=== PATIENT | male | born 1965 | race Caucasian/White ===

== ENCOUNTER 2017-03-06 10:57 | Inpatient (IN) | payer BC ==
[~2017-03-06] VITALS: Ht 172.7 cm; Wt 86.8 kg
[~2017-03-06 10:57] MED LIST: DAYPRO600 M1 PO; HYDR25T PO; HYDROCODONE BIT1 T11 PO; KLONOPIN2 M1 PO; LISINOPRIL20 MG PO; ROBAXIN750 MG PO; XANAX1 MG PO
[2017-03-06 11:00] VITALS: BP 162/90
[2017-03-06 11:25] LABS: BASO % 0.7 % (0.0-1.0); EOS # 0.3 10*3/uL (0.0-0.4); EOS % 5.3 % (1.0-4.0); HEMATOCRIT 44.3 % (42.0-52.0); HEMOGLOBIN 15.7 g/dl (14.0-18.0); LYMPH # 1.2 10*3/uL (1.3-4.4); LYMPH % 22.1 % (27.0-41.0); MEAN CELL VOLUME 86.2 fl (80.0-94.0); MEAN CORPUSCULAR HGB 30.5 pg (27.0-31.0); MEAN CORPUSCULAR HGB CONC 35.4 g/dl (33.0-37.0); MEAN PLATELET VOLUME 9.8 fl (9.6-12.3); MONO # 0.5 10*3/uL (0.1-1.0); MONO % 9.5 % (3.0-9.0); NEUT # 3.4 10*3/uL (2.3-7.9); PLATELET COUNT AUTOMATED 189 10*3/uL (130-400); RED BLOOD COUNT 5.14 10*6/uL (4.50-5.90); RED CELL DISTRI WIDTH 11.9 % (0-14.5); WHITE BLOOD COUNT 5.5 10*3/uL (4.8-10.8)
[2017-03-06 11:34] LABS: PROTHROMBIN TIME 10.5 SECONDS (9.0-12.4)
[2017-03-06 11:40] LABS: ALKALINE PHOSPHATASE 63 U/L (45-117); BILIRUBIN, TOTAL 0.5 mg/dl (0.2-1.0); BUN 14 mg/dl (7-24); C-REACTIVE PROTEIN 0.29 MG/DL (0-0.3); CARBON DIOXIDE 25 mmol/L (21-32); CHLORIDE 104 mmol/L (98-107); CKMB 0.7 ng/ml (0.5-3.6); CPK 94 U/L (39-308); EST GLOM FILT AFRICAN AMERICAN > 60 ml/min; GLUCOSE 103 mg/dL (65-99); MAGNESIUM 2.4 mg/dL (1.5-2.1); SGOT/AST 26 IU/L (3-35); SGPT/ALT 42 U/L (12-78); SODIUM 142 mmol/L (136-145); TOTAL PROTEIN 7.4 gm/dL (6.4-8.2)
[2017-03-06 11:42] LABS: TROPONIN I < 0.015 ng/ml (<0.045)
[2017-03-06 12:10] VITALS: BP 143/95
[2017-03-06] MEDS ORDERED: AMOXICILLIN500 M2 PO (12:59)
[2017-03-06 13:30] VITALS: BP 132/88
[2017-03-06 14:24] LABS: CPK 83 U/L (39-308)
[2017-03-06 14:29] LABS: CKMB < 0.5 ng/ml (0.5-3.6)
[2017-03-06 16:00] VITALS: BP 136/76
[2017-03-06 16:42] LABS: CKMB 0.9 ng/ml (0.5-3.6)
[2017-03-06 19:52] LABS: CPK 78 U/L (39-308)
[2017-03-06 20:00] VITALS: BP 133/87
[2017-03-06 20:00] LABS: CKMB < 0.5 ng/ml (0.5-3.6)
[2017-03-07] VITALS: BP 139/86
[2017-03-07 06:28] LABS: BASO % 0.5 % (0.0-1.0); BUN 13 mg/dl (7-24); CARBON DIOXIDE 28 mmol/L (21-32); CHLORIDE 107 mmol/L (98-107); CHOLESTEROL 150 mg/dL (<200); EOS # 0.3 10*3/uL (0.0-0.4); EOS % 5.9 % (1.0-4.0); EST GLOM FILT AFRICAN AMERICAN > 60 ml/min; GLUCOSE 93 mg/dL (65-99); HEMATOCRIT 38.9 % (42.0-52.0); LYMPH # 2.1 10*3/uL (1.3-4.4); LYMPH % 37.4 % (27.0-41.0); MAGNESIUM 2.1 mg/dL (1.5-2.1); MEAN CELL VOLUME 88.2 fl (80.0-94.0); MEAN CORPUSCULAR HGB 30.4 pg (27.0-31.0); MEAN CORPUSCULAR HGB CONC 34.4 g/dl (33.0-37.0); MONO # 0.5 10*3/uL (0.1-1.0); MONO % 8.4 % (3.0-9.0); NEUT # 2.7 10*3/uL (2.3-7.9); NEUT % 47.6 % (47.0-73.0); PHOSPHOROUS 3.5 mg/dL (2.5-4.9); PLATELET COUNT AUTOMATED 161 10*3/uL (130-400); POTASSIUM 4.5 mmol/L (3.5-5.1); RED BLOOD COUNT 4.41 10*6/uL (4.50-5.90); SODIUM 144 mmol/L (136-145); TRIGLYCERIDES 143 mg/dl (<150); VLDL CHOLESTEROL 29 mg/dL (6-40); WHITE BLOOD COUNT 5.6 10*3/uL (4.8-10.8)
[2017-03-07 06:30] LABS: HEMOGLOBIN 13.4 g/dl (14.0-18.0)
[2017-03-07 06:40] LABS: FREE T4 1.18 ng/dl (0.76-1.46); HDL CHOLESTEROL 34 mg/dl (40-60); LDL CHOLESTEROL 87 mg/dL (9-159)
[2017-03-07 07:15] LABS: HEMOGLOBIN A1c 5.8 % (4.8-5.6)
[2017-03-07 08:00] VITALS: BP 133/78
[2017-03-07 12:00] VITALS: BP 128/82
[2017-03-07 16:00] VITALS: BP 114/64
[2017-03-07 20:00] VITALS: BP 132/81
[2017-03-08] VITALS: BP 107/75
[2017-03-08 06:07] LABS: BASO % 0.5 % (0.0-1.0); EOS # 0.4 10*3/uL (0.0-0.4); EOS % 5.3 % (1.0-4.0); HEMATOCRIT 41.1 % (42.0-52.0); HEMOGLOBIN 14.2 g/dl (14.0-18.0); LYMPH # 2.1 10*3/uL (1.3-4.4); LYMPH % 32.1 % (27.0-41.0); MEAN CELL VOLUME 88.6 fl (80.0-94.0); MEAN CORPUSCULAR HGB 30.6 pg (27.0-31.0); MEAN CORPUSCULAR HGB CONC 34.5 g/dl (33.0-37.0); MEAN PLATELET VOLUME 9.5 fl (9.6-12.3); MONO # 0.5 10*3/uL (0.1-1.0); MONO % 8.2 % (3.0-9.0); NEUT # 3.6 10*3/uL (2.3-7.9); NEUT % 53.6 % (47.0-73.0); PLATELET COUNT AUTOMATED 165 10*3/uL (130-400); RED BLOOD COUNT 4.64 10*6/uL (4.50-5.90); RED CELL DISTRI WIDTH 12.2 % (0-14.5); WHITE BLOOD COUNT 6.6 10*3/uL (4.8-10.8)
[2017-03-08 08:00] VITALS: BP 118/86
[2017-03-08] MEDS ORDERED: D-1000 185 MG-11 TAB PO (10:00)
== END 2017-03-08 11:45 | disposition home or self-care (01) | DRG 312 ==
LOC: ED 10:57 → EDHOLD 12:01 → 4E 12:05
PROVIDERS: Emergency Medicine; Hospitalist; Student in an Organized Health Care Education/Training Program
DX: R55 Syncope and collapse (principal); E83.41 Hypermagnesemia; I10 Essential (primary) hypertension; R19.7 Diarrhea, unspecified; R00.1 Bradycardia, unspecified; D64.9 Anemia, unspecified; E55.9 Vitamin D deficiency, unspecified; F41.0 Panic disorder [episodic paroxysmal anxiety]; E78.5 Hyperlipidemia, unspecified; Z82.49 Family history of ischemic heart disease and other diseases of the circulatory system; Z82.3 Family history of stroke

== ENCOUNTER → 2017-04-27 | Outpatient (CLI) | payer BC ==
[~2017-04-27] MED LIST changes: +AMOXICILLIN500 M2 PO; +ASPIR LOW81 MG PO; +D-1000 185 MG-11 TAB PO
--- NOTE | ~2017-04-27 | ST ---
[place], [place] EXERCISE STRESS TEST REPORT NAME[id number] UNIT #: [id number] ROOM: DOCTOR: DEONTE ALONSO MD BIRTHDATE: [birth year] DOS: INDICATION: Chest pain. PROCEDURE: The patient was exercised on a treadmill using Manav protocol. The patient exercised for 9 minutes and 30 seconds, reaching 90% of his maximum predicted heart rate. Maximum workload was 12 mets. Double product 26,274. At the peak of exercise, there was no complaint of chest pain, chest pressure, heaviness or tightness. No symptomatic palpitation. Occasional PVCs that appear to be unifocal were noticed, but it was likely completely asymptomatic. BLOOD PRESSURE RESPONSE: Resting blood pressure 142/100 with ending blood pressure of 174/102. ELECTROCARDIOGRAM INTERPRETATION: The resting electrocardiogram showing normal sinus rhythm, heart rate of 70. There is poor R progression in V1 and V2. At the peak of the stress test, there was no evidence of any significant ST or T-wave changes suggestive of myocardial ischemia. Frequent PVCs, occasional pairs and bigeminy were noticed with exercise. No runs of non-sustained VT. SUMMARY: 1. Adequate stress test with good functional capacity. 2. Negative treadmill stress test for stress induced myocardial ischemia. 3. Frequent PVC pairs with exercise, but no runs of nonsustained V-tach. All these arrhythmia were completely asymptomatic. 4. Hypertensive at rest with hypertensive diastolic blood pressure response to exercise. 5. No nuclear images were performed. DEONTE ALONSO MD CM:STRESS:EXERCISE STRESS TEST REPORT [id number] DEONTE ALONSO MD
== END | disposition home or self-care (01) ==
LOC: CARD 03:22
DX: R94.31 Abnormal electrocardiogram [ECG] [EKG] (principal); I10 Essential (primary) hypertension; F41.9 Anxiety disorder, unspecified; Z82.49 Family history of ischemic heart disease and other diseases of the circulatory system

== ENCOUNTER → 2019-03-31 | Outpatient (CLI) | payer BC | END | disposition home or self-care (01) | LOC: LAB 11:24 | DX: R53.83 Other fatigue (principal) ==

== ENCOUNTER → 2020-01-20 | Outpatient (CLI) | payer BC | END | disposition home or self-care (01) | LOC: COVID19 09:30 | DX: R05 Cough (principal); Z20.828 Contact with and (suspected) exposure to other viral communicable diseases; Z78.9 Other specified health status ==

== ENCOUNTER → 2020-08-25 | Outpatient (CLI) | payer BC | END | disposition home or self-care (01) | LOC: COVID19 09:23 | PROVIDERS: ATTEND Family Medicine | DX: Z20.828 Contact with and (suspected) exposure to other viral communicable diseases (principal) ==

== ENCOUNTER 2020-11-06 21:42 | Emergency (ER) | payer BC ==
[~2020-11-06] VITALS: Wt 90.7 kg
[2020-11-06 22:20] LABS: BASO % 0.1 % (0.0-1.0); HEMATOCRIT 43.8 % (42.0-52.0); LYMPH # 0.4 10*3/uL (1.3-4.4); LYMPH % 3.8 % (27.0-41.0); MEAN CELL VOLUME 87.3 fl (80.0-94.0); MEAN CORPUSCULAR HGB 29.5 pg (27.0-31.0); MEAN CORPUSCULAR HGB CONC 33.8 g/dl (33.0-37.0); MEAN PLATELET VOLUME 10.2 fl (9.6-12.3); MONO # 0.7 10*3/uL (0.1-1.0); MONO % 6.8 % (3.0-9.0); NEUT # 9.1 10*3/uL (2.3-7.9); NEUT % 88.8 % (47.0-73.0); PLATELET COUNT AUTOMATED 170 10*3/uL (130-400); RED BLOOD COUNT 5.02 10*6/uL (4.50-5.90); RED CELL DISTRI WIDTH 12.1 % (0-14.5); WHITE BLOOD COUNT 10.2 10*3/uL (4.8-10.8)
[2020-11-06 22:38] LABS: ALBUMIN 3.6 gm/dl (3.1-4.5); ALKALINE PHOSPHATASE 52 U/L (45-117); BUN 15 mg/dl (7-24); CHLORIDE 106 mmol/L (98-107); CREATININE 1.14 mg/dL (0.70-1.30); POTASSIUM 4.1 mmol/L (3.5-5.1); SGOT/AST 23 IU/L (3-35); SGPT/ALT 90 U/L (12-78); SODIUM 138 mmol/L (136-145); TOTAL PROTEIN 7.9 gm/dL (6.4-8.2)
== END 2020-11-06 23:30 | disposition home or self-care (01) ==
LOC: ED 21:42
PROVIDERS: Internal Medicine
DX: U07.1 COVID-19 (principal); R79.82 Elevated C-reactive protein (CRP); R79.89 Other specified abnormal findings of blood chemistry; I10 Essential (primary) hypertension; F41.9 Anxiety disorder, unspecified; E78.00 Pure hypercholesterolemia, unspecified; Z79.899 Other long term (current) drug therapy; Z79.82 Long term (current) use of aspirin; Z98.890 Other specified postprocedural states

== ENCOUNTER 2020-11-15 13:27 | Emergency (ER) | payer BC ==
[~2020-11-15] VITALS: Wt 95.3 kg
[2020-11-15 14:12] LABS: BASO % 0.2 % (0.0-1.0); EOS # 0.1 10*3/uL (0.0-0.4); EOS % 1.4 % (1.0-4.0); LYMPH # 0.9 10*3/uL (1.3-4.4); LYMPH % 9.3 % (27.0-41.0); MEAN CELL VOLUME 86.2 fl (80.0-94.0); MEAN CORPUSCULAR HGB 28.7 pg (27.0-31.0); MEAN CORPUSCULAR HGB CONC 33.3 g/dl (33.0-37.0); MEAN PLATELET VOLUME 9.6 fl (9.6-12.3); MONO # 0.9 10*3/uL (0.1-1.0); MONO % 9.2 % (3.0-9.0); NEUT # 7.8 10*3/uL (2.3-7.9); NEUT % 79.3 % (47.0-73.0); PLATELET COUNT AUTOMATED 247 10*3/uL (130-400); RED BLOOD COUNT 4.87 10*6/uL (4.50-5.90); RED CELL DISTRI WIDTH 12.5 % (0-14.5); WHITE BLOOD COUNT 9.9 10*3/uL (4.8-10.8)
[2020-11-15 14:26] LABS: ACT PARTIAL THROMBO TIME 28.6 SECONDS (20.0-32.1); INTERNATIONAL NORM RATIO 1.1 (2.0-3.5)
[2020-11-15 14:30] LABS: ALBUMIN 2.6 gm/dl (3.1-4.5); ALKALINE PHOSPHATASE 40 U/L (45-117); BUN 20 mg/dl (7-24); CHLORIDE 102 mmol/L (98-107); CREATININE 1.29 mg/dL (0.70-1.30); LIPASE 171 U/L (73-393); POTASSIUM 3.2 mmol/L (3.5-5.1); SGOT/AST 85 IU/L (3-35); SGPT/ALT 103 U/L (12-78); SODIUM 135 mmol/L (136-145); TOTAL PROTEIN 8.1 gm/dL (6.4-8.2)
[2020-11-15 14:31] LABS: TROPONIN I < 0.015 ng/ml (<0.045)
[2020-11-15] MEDS ORDERED: DECADRON6 M1 PO ×2 (17:55→18:03)
== END 2020-11-15 20:04 | disposition home or self-care (01) ==
LOC: ED 13:27
PROVIDERS: Emergency Medicine
DX: U07.1 COVID-19 (principal); J12.82 Pneumonia due to coronavirus disease 2019; I10 Essential (primary) hypertension; F41.9 Anxiety disorder, unspecified; E78.00 Pure hypercholesterolemia, unspecified; Z79.82 Long term (current) use of aspirin; Z79.899 Other long term (current) drug therapy; Z98.890 Other specified postprocedural states

== ENCOUNTER → 2021-01-07 | Outpatient (CLI) | payer BC ==
[~2021-01-07] MED LIST changes: +DECADRON6 M1 PO
== END | disposition home or self-care (01) ==
LOC: RAD 09:13
PROVIDERS: ATTEND Family Medicine
DX: U07.1 COVID-19 (principal); J12.81 Pneumonia due to SARS-associated coronavirus

== ENCOUNTER → 2021-06-17 | Outpatient (CLI) | payer BC ==
[2021-06-17 11:39] LABS: BUN 11 mg/dl (7-24); CHLORIDE 107 mmol/L (98-107); CHOLESTEROL 195 mg/dL (<200); CREATININE 1.15 mg/dL (0.70-1.30); LDL CHOLESTEROL 120 mg/dL (9-159); POTASSIUM 3.9 mmol/L (3.5-5.1); SODIUM 141 mmol/L (136-145); TRIGLYCERIDES 186 mg/dl (<150)
== END | disposition home or self-care (01) ==
LOC: LAB 11:05
PROVIDERS: ATTEND Family Medicine
DX: I10 Essential (primary) hypertension (principal); F41.1 Generalized anxiety disorder

== ENCOUNTER 2022-04-20 22:18 | Emergency (ER) | payer BC ==
[~2022-04-20] VITALS: Ht 170.1 cm; Wt 95.7 kg
[2022-04-20] MEDS ORDERED: LOSARTAN POTAS100 M1 PO (22:27)
[2022-04-20 23:14] LABS: BASO # 0.1 10*3/uL (0.0-0.1); EOS # 0.2 10*3/uL (0.0-0.4); EOS % 3.5 % (1.0-4.0); HEMATOCRIT 47.9 % (42.0-52.0); LYMPH % 31.6 % (27.0-41.0); MEAN CELL VOLUME 86.6 fl (80.0-94.0); MEAN CORPUSCULAR HGB 29.8 pg (27.0-31.0); MEAN CORPUSCULAR HGB CONC 34.4 g/dl (33.0-37.0); MEAN PLATELET VOLUME 9.7 fl (9.6-12.3); MONO # 0.5 10*3/uL (0.1-1.0); MONO % 7.3 % (3.0-9.0); NEUT # 3.5 10*3/uL (2.3-7.9); NEUT % 56.3 % (47.0-73.0); PLATELET COUNT AUTOMATED 206 10*3/uL (130-400); RED BLOOD COUNT 5.53 10*6/uL (4.50-5.90); RED CELL DISTRI WIDTH 12.5 % (0-14.5); WHITE BLOOD COUNT 6.3 10*3/uL (4.8-10.8)
[2022-04-20 23:29] LABS: ALKALINE PHOSPHATASE 70 U/L (45-117); BUN 12 mg/dl (7-24); CHLORIDE 110 mmol/L (98-107); CREATININE 0.92 mg/dL (0.70-1.30); POTASSIUM 3.9 mmol/L (3.5-5.1); SGOT/AST 60 IU/L (3-35); SGPT/ALT 86 U/L (12-78); SODIUM 143 mmol/L (136-145); TOTAL PROTEIN 7.6 gm/dL (6.4-8.2)
[2022-04-21 00:57] LABS: BILIRUBIN Negative (Negative); BLOOD Negative (Negative); CLARITY Clear (Clear); COLOR Yellow (Yellow); GLUCOSE Negative (Negative); KETONE Negative (Negative); LEUKO ESTERASE Negative (Negative); NITRITE Negative (Negative); PH 5.5 (4.5-8.0); SPECIFIC GRAVITY 1.015 (1.001-1.030); UROBILINOGEN 0.2 E.U./dl (0.0-1.0)
[2022-04-21 01:34] LABS: WBC 0-2 wbc/hpf (0-5)
[2022-04-21] MEDS ORDERED: ANTIVERT25 M1 PO (03:07)
== END 2022-04-21 03:16 | disposition home or self-care (01) ==
LOC: ED 22:18
PROVIDERS: Emergency Medicine
DX: R42 Dizziness and giddiness (principal); I10 Essential (primary) hypertension; E78.5 Hyperlipidemia, unspecified; Z79.899 Other long term (current) drug therapy; Z79.82 Long term (current) use of aspirin; Z98.890 Other specified postprocedural states

== ENCOUNTER → 2022-07-25 | Outpatient (CLI) | payer BC ==
[~2022-07-25] MED LIST changes: +ANTIVERT25 M1 PO; +LOSARTAN POTAS100 M1 PO
== END ==
LOC: LAB 08:41
PROVIDERS: ATTEND Family Medicine
DX: R73.9 Hyperglycemia, unspecified (principal)

== ENCOUNTER 2022-09-21 21:16 | Emergency (ER) | payer BC ==
[~2022-09-21] VITALS: Ht 170.1 cm; Wt 88.5 kg
[2022-09-21 21:51] LABS: BASO # 0.1 10*3/uL (0.0-0.1); BASO % 0.5 % (0.0-1.0); EOS # 0.3 10*3/uL (0.0-0.4); EOS % 2.9 % (1.0-4.0); HEMATOCRIT 45.3 % (42.0-52.0); LYMPH # 1.1 10*3/uL (1.3-4.4); LYMPH % 10.5 % (27.0-41.0); MEAN CELL VOLUME 86.5 fl (80.0-94.0); MEAN CORPUSCULAR HGB 29.2 pg (27.0-31.0); MEAN CORPUSCULAR HGB CONC 33.8 g/dl (33.0-37.0); MEAN PLATELET VOLUME 9.2 fl (9.6-12.3); MONO # 0.7 10*3/uL (0.1-1.0); MONO % 6.8 % (3.0-9.0); NEUT # 8.6 10*3/uL (2.3-7.9); PLATELET COUNT AUTOMATED 235 10*3/uL (130-400); RED BLOOD COUNT 5.24 10*6/uL (4.50-5.90); RED CELL DISTRI WIDTH 12.9 % (0-14.5); WHITE BLOOD COUNT 10.9 10*3/uL (4.8-10.8)
[2022-09-21 22:05] LABS: ALKALINE PHOSPHATASE 59 U/L (46-116); BUN 8 mg/dl (9-23); CHLORIDE 108 mmol/L (98-107); POTASSIUM 3.5 mmol/L (3.4-5.1); SGPT/ALT 40 U/L (10-49); TOTAL PROTEIN 7.2 gm/dL (6.0-8.0)
[2022-09-21] MEDS ORDERED: METRONIDAZOLE500 M1 PO (22:53)
[2022-09-22 00:36] LABS: BILIRUBIN Negative (Negative); BLOOD Negative (Negative); CLARITY Clear (Clear); COLOR Yellow (Yellow); GLUCOSE Negative (Negative); KETONE Trace (Negative); LEUKO ESTERASE Negative (Negative); NITRITE Negative (Negative); PH 5.5 (4.5-8.0)
[2022-09-22 00:44] LABS: RBC 0-2 rbc/hpf (0-2); WBC 0-2 wbc/hpf (0-5)
[2022-09-22] MEDS ORDERED: VANCOCIN125 M1 PO (08:34)
== END 2022-09-22 01:10 | disposition home or self-care (01) ==
LOC: ED 21:16
PROVIDERS: Nurse Practitioner
DX: A04.72 Enterocolitis due to Clostridium difficile, not specified as recurrent (principal); Z20.822 Contact with and (suspected) exposure to COVID-19; L25.9 Unspecified contact dermatitis, unspecified cause; Z98.890 Other specified postprocedural states; Z79.899 Other long term (current) drug therapy; Z79.82 Long term (current) use of aspirin; I10 Essential (primary) hypertension

== ENCOUNTER 2022-10-15 09:34 | Emergency (ER) | payer BC ==
[~2022-10-15] VITALS: Ht 170.1 cm; Wt 85.3 kg
[~2022-10-15 09:34] MED LIST changes: +METRONIDAZOLE500 M1 PO; +VANCOCIN125 M1 PO
[2022-10-15 10:18] LABS: BASO # 0.1 10*3/uL (0.0-0.1); BASO % 0.5 % (0.0-1.0); EOS # 0.4 10*3/uL (0.0-0.4); EOS % 3.5 % (1.0-4.0); HEMATOCRIT 47.6 % (42.0-52.0); LYMPH # 1.7 10*3/uL (1.3-4.4); LYMPH % 15.7 % (27.0-41.0); MEAN CELL VOLUME 86.2 fl (80.0-94.0); MEAN CORPUSCULAR HGB 29.9 pg (27.0-31.0); MEAN CORPUSCULAR HGB CONC 34.7 g/dl (33.0-37.0); MEAN PLATELET VOLUME 9.6 fl (9.6-12.3); MONO % 9.7 % (3.0-9.0); NEUT # 7.5 10*3/uL (2.3-7.9); NEUT % 70.2 % (47.0-73.0); PLATELET COUNT AUTOMATED 211 10*3/uL (130-400); RED BLOOD COUNT 5.52 10*6/uL (4.50-5.90); RED CELL DISTRI WIDTH 12.9 % (0-14.5); WHITE BLOOD COUNT 10.7 10*3/uL (4.8-10.8)
[2022-10-15 10:40] LABS: ALKALINE PHOSPHATASE 61 U/L (46-116); BUN 10 mg/dl (9-23); CHLORIDE 103 mmol/L (98-107); POTASSIUM 3.3 mmol/L (3.4-5.1); SGPT/ALT 27 U/L (10-49); TOTAL PROTEIN 7.6 gm/dL (6.0-8.0)
[2022-10-15] MEDS ORDERED: VANCOMYCIN HCL125 MG PO (12:41)
== END 2022-10-15 12:54 | disposition home or self-care (01) ==
LOC: ED 09:34
PROVIDERS: Internal Medicine
DX: K52.9 Noninfective gastroenteritis and colitis, unspecified (principal); Z98.890 Other specified postprocedural states; F12.90 Cannabis use, unspecified, uncomplicated

== ENCOUNTER 2022-11-20 21:35 | Emergency (ER) | payer BC ==
[~2022-11-20] VITALS: Ht 170.1 cm; Wt 68.0 kg
[~2022-11-20 21:35] MED LIST changes: +VANCOMYCIN HCL125 MG PO
[2022-11-20 21:53] LABS: BASO # 0.1 10*3/uL (0.0-0.1); BASO % 0.9 % (0.0-1.0); EOS # 0.4 10*3/uL (0.0-0.4); EOS % 5.3 % (1.0-4.0); HEMATOCRIT 48.9 % (42.0-52.0); LYMPH # 2.7 10*3/uL (1.3-4.4); LYMPH % 38.5 % (27.0-41.0); MEAN CELL VOLUME 86.4 fl (80.0-94.0); MEAN CORPUSCULAR HGB CONC 33.5 g/dl (33.0-37.0); MEAN PLATELET VOLUME 9.5 fl (9.6-12.3); MONO # 0.5 10*3/uL (0.1-1.0); MONO % 7.3 % (3.0-9.0); NEUT # 3.3 10*3/uL (2.3-7.9); NEUT % 47.7 % (47.0-73.0); PLATELET COUNT AUTOMATED 219 10*3/uL (130-400); RED BLOOD COUNT 5.66 10*6/uL (4.50-5.90); RED CELL DISTRI WIDTH 13.1 % (0-14.5)
[2022-11-20 22:07] LABS: ALKALINE PHOSPHATASE 73 U/L (46-116); BUN 9 mg/dl (9-23); CHLORIDE 107 mmol/L (98-107); POTASSIUM 3.7 mmol/L (3.4-5.1); SGPT/ALT 26 U/L (10-49); TOTAL PROTEIN 7.3 gm/dL (6.0-8.0)
[2022-11-20] MEDS ORDERED: Ondansetron4 MG PO (22:20)
== END 2022-11-20 22:54 | disposition home or self-care (01) ==
LOC: ED 21:35
PROVIDERS: Emergency Medicine
DX: A04.72 Enterocolitis due to Clostridium difficile, not specified as recurrent (principal); I10 Essential (primary) hypertension; F41.9 Anxiety disorder, unspecified; E78.00 Pure hypercholesterolemia, unspecified; Z98.890 Other specified postprocedural states; F12.90 Cannabis use, unspecified, uncomplicated; R11.2 Nausea with vomiting, unspecified; R53.1 Weakness

== ENCOUNTER 2023-03-11 21:36 | Emergency (ER) | payer BC ==
[~2023-03-11] VITALS: Ht 170.1 cm; Wt 83.9 kg
[~2023-03-11 21:36] MED LIST changes: +Ondansetron4 MG PO
== END 2023-03-11 23:27 | disposition home or self-care (01) ==
LOC: ED 21:36
DX: S80.02XA Contusion of left knee, initial encounter (principal); M17.12 Unilateral primary osteoarthritis, left knee; I10 Essential (primary) hypertension; F41.9 Anxiety disorder, unspecified; E78.00 Pure hypercholesterolemia, unspecified; Z86.16 Personal history of COVID-19; Z98.890 Other specified postprocedural states; F12.90 Cannabis use, unspecified, uncomplicated; W01.10XA Fall on same level from slipping, tripping and stumbling with subsequent striking against unspecified object, initial encounter; Y93.89 Activity, other specified; Y92.009 Unspecified place in unspecified non-institutional (private) residence as the place of occurrence of the external cause; Y99.8 Other external cause status

== ENCOUNTER → 2023-05-28 | Outpatient (CLI) | payer BC ==
[2023-05-28 11:21] LABS: BASO % 0.2 % (0.0-1.0); EOS % 0.1 % (1.0-4.0); HEMATOCRIT 50.8 % (42.0-52.0); LYMPH # 1.2 10*3/uL (1.3-4.4); LYMPH % 9.8 % (27.0-41.0); MEAN CORPUSCULAR HGB 30.6 pg (27.0-31.0); MEAN CORPUSCULAR HGB CONC 34.4 g/dl (33.0-37.0); MEAN PLATELET VOLUME 10.1 fl (9.6-12.3); MONO # 0.8 10*3/uL (0.1-1.0); MONO % 6.8 % (3.0-9.0); NEUT % 82.7 % (47.0-73.0); PLATELET COUNT AUTOMATED 207 10*3/uL (130-400); RED BLOOD COUNT 5.71 10*6/uL (4.50-5.90); RED CELL DISTRI WIDTH 12.1 % (0-14.5); WHITE BLOOD COUNT 12.1 10*3/uL (4.8-10.8)
[2023-05-28 11:38] LABS: ALKALINE PHOSPHATASE 60 U/L (46-116); BUN 10 mg/dl (9-23); CHLORIDE 103 mmol/L (98-107); POTASSIUM 4.5 mmol/L (3.4-5.1); SGPT/ALT 39 U/L (10-49); TOTAL PROTEIN 8.2 gm/dL (6.0-8.0)
== END | disposition home or self-care (01) ==
LOC: LAB 10:43
PROVIDERS: ATTEND Specialist
DX: R42 Dizziness and giddiness (principal)

== ENCOUNTER → 2023-06-19 | Outpatient (CLI) | payer BC ==
[~2023-06-19] MED LIST changes: +AMOX-CLAV 875-1 EACH PO; +Meclizine25 MG PO; +OMEPRAZOLE20 M3 PO; +ONDANSETRON HYDR8 MG PO; +XANAX2 M1 PO
== END | disposition home or self-care (01) ==
LOC: CANSCHCLI → MRI 08:34
PROVIDERS: ATTEND Specialist
DX: R42 Dizziness and giddiness (principal)

== ENCOUNTER → 2023-06-21 | Day surgery (SDC) | payer BC ==
[~2023-06-21] VITALS: Ht 170.1 cm; Wt 90.7 kg
[2023-06-21 08:58] VITALS: BP 139/82
[2023-06-21 09:13] VITALS: BP 132/80
[2023-06-21 09:28] VITALS: BP 140/81
== END | disposition home or self-care (01) ==
LOC: SDC 06-18 10:15 → MRI 06-19 09:00 → SDC 01:29
PROVIDERS: ATTEND Specialist
DX: H81.91 Unspecified disorder of vestibular function, right ear (principal); I10 Essential (primary) hypertension; K21.9 Gastro-esophageal reflux disease without esophagitis; F41.9 Anxiety disorder, unspecified; F32.A Depression, unspecified; G47.30 Sleep apnea, unspecified; F43.10 Post-traumatic stress disorder, unspecified; Z79.899 Other long term (current) drug therapy; Z98.890 Other specified postprocedural states

== ENCOUNTER 2023-06-24 20:24 | Emergency (ER) | payer BC ==
[~2023-06-24] VITALS: Ht 170.1 cm; Wt 90.7 kg
[~2023-06-24 20:24] MED LIST changes: -AMOX-CLAV 875-1 EACH PO; -ONDANSETRON HYDR8 MG PO
[2023-06-24] MEDS ORDERED: ONDANSETRON HYDR8 MG PO (20:35)
[2023-06-24] MEDS ORDERED: AMOX-CLAV 875-1 EACH PO (20:41)
== END 2023-06-24 21:10 | disposition home or self-care (01) ==
LOC: ED 20:24
DX: H66.91 Otitis media, unspecified, right ear (principal); I10 Essential (primary) hypertension; F41.9 Anxiety disorder, unspecified; E78.00 Pure hypercholesterolemia, unspecified; Z86.16 Personal history of COVID-19; Z98.890 Other specified postprocedural states; F12.90 Cannabis use, unspecified, uncomplicated

== ENCOUNTER → 2023-10-31 | Outpatient (CLI) | payer BC ==
[~2023-10-31] MED LIST changes: +AMOX-CLAV 875-1 EACH PO; +FLONASE ALLERG9.9 ML NAS; +ONDANSETRON HYDR8 MG PO; +PROVENTIL HFA6.7 GM INH; +ZYRTEC10 M2 PO
[2023-10-31 08:26] LABS: CHOLESTEROL 97 mg/dL (<200); LDL CHOLESTEROL 38 mg/dL (9-159); TRIGLYCERIDES 135 mg/dl (<150)
== END | disposition home or self-care (01) ==
LOC: LAB 07:17
PROVIDERS: ATTEND Internal Medicine Cardiovascular Disease
DX: I25.10 Atherosclerotic heart disease of native coronary artery without angina pectoris (principal)

== ENCOUNTER → 2024-05-06 | Outpatient (CLI) | payer BC ==
[2024-05-06 12:11] LABS: BASO # 0.1 10*3/uL (0.0-0.1); BASO % 0.8 % (0.0-1.0); EOS # 0.3 10*3/uL (0.0-0.4); EOS % 4.3 % (1.0-4.0); HEMATOCRIT 49.7 % (42.0-52.0); LYMPH # 1.4 10*3/uL (1.3-4.4); MEAN CELL VOLUME 85.8 fl (80.0-94.0); MEAN CORPUSCULAR HGB 28.3 pg (27.0-31.0); MEAN PLATELET VOLUME 9.8 fl (9.6-12.3); MONO # 0.7 10*3/uL (0.1-1.0); MONO % 8.7 % (3.0-9.0); NEUT # 5.1 10*3/uL (2.3-7.9); NEUT % 67.9 % (47.0-73.0); PLATELET COUNT AUTOMATED 202 10*3/uL (130-400); RED BLOOD COUNT 5.79 10*6/uL (4.50-5.90); WHITE BLOOD COUNT 7.5 10*3/uL (4.8-10.8)
[2024-05-06 12:34] LABS: ALKALINE PHOSPHATASE 60 U/L (46-116); BUN 14 mg/dl (9-23); CHLORIDE 103 mmol/L (98-107); CHOLESTEROL 102 mg/dL (<200); FREE T4 1.26 ng/dl (0.89-1.76); LDL CHOLESTEROL 42 mg/dL (9-159); POTASSIUM 4.4 mmol/L (3.4-5.1); SGPT/ALT 46 U/L (5-49); TOTAL PROTEIN 7.5 gm/dL (6.0-8.0); TRIGLYCERIDES 144 mg/dl (<150)
[2024-05-06 12:51] LABS: VITAMIN D, 25-HYDROXY 30.1 ng/mL (30-100)
== END | disposition home or self-care (01) ==
LOC: LAB 11:48
PROVIDERS: ATTEND Internal Medicine
DX: I10 Essential (primary) hypertension (principal)

== ENCOUNTER 2024-06-03 21:51 | Observation (INO) | payer BC ==
[~2024-06-03] VITALS: Ht 170.1 cm; Wt 100.7 kg
[2024-06-03 22:13] VITALS: BP 154/81
[2024-06-03 23:22] LABS: BASO % 0.6 % (0.0-1.0); EOS # 0.3 10*3/uL (0.0-0.4); EOS % 4.1 % (1.0-4.0); LYMPH # 1.8 10*3/uL (1.3-4.4); MEAN CELL VOLUME 84.2 fl (80.0-94.0); MEAN CORPUSCULAR HGB 27.8 pg (27.0-31.0); MEAN PLATELET VOLUME 9.4 fl (9.6-12.3); MONO # 0.6 10*3/uL (0.1-1.0); MONO % 8.4 % (3.0-9.0); NEUT # 4.4 10*3/uL (2.3-7.9); NEUT % 61.8 % (47.0-73.0); PLATELET COUNT AUTOMATED 185 10*3/uL (130-400); RED BLOOD COUNT 5.46 10*6/uL (4.50-5.90); WHITE BLOOD COUNT 7.1 10*3/uL (4.8-10.8)
[2024-06-03 23:25] VITALS: BP 100/77
[2024-06-03 23:33] LABS: ACT PARTIAL THROMBO TIME 26.7 SECONDS (20.0-32.1)
[2024-06-04 01:09] LABS: BUN 16 mg/dl (9-23); CHLORIDE 104 mmol/L (98-107); POTASSIUM 3.6 mmol/L (3.4-5.1)
[2024-06-04] MEDS ORDERED: Meclizine Hydrochloride 25 MG TAB PO ONE (02:25)
[2024-06-04] MEDS ORDERED: Ondansetron Hydrochloride 4 MG/2 ML VIAL IV ONE (02:25)
[2024-06-04] MEDS ORDERED: OXYCODONE HCL (IR) 5 MG TAB PO ONE (02:40)
[2024-06-04 03:06] LABS: BILIRUBIN Negative (Negative); BLOOD Negative (Negative); CLARITY Clear (Clear); COLOR Yellow (Yellow); GLUCOSE Negative (Negative); KETONE 1+ (Negative); LEUKO ESTERASE Trace (Negative); NITRITE Negative (Negative); SPECIFIC GRAVITY >= 1.030 (1.001-1.030)
[2024-06-04 03:14] LABS: RBC 0-2 rbc/hpf (0-2)
[2024-06-04] MEDS ORDERED: Magnesium Hydroxide 30 ML UDC PO PRN (04:05)
[2024-06-04] MEDS ORDERED: BISACODYL 5 MG TAB PO PRN (04:05)
[2024-06-04] MEDS ORDERED: BISACODYL 10 MG SUPP R PRN (04:05)
[2024-06-04] MEDS ORDERED: ACETAMINOPHEN 650 MG SUPP R PRN (04:05)
[2024-06-04] MEDS ORDERED: ACETAMINOPHEN 325 MG TAB PO PRN (04:05)
[2024-06-04] MEDS ORDERED: MORPHINE Sulfate 2 MG/ML SYR IV PRN (04:05)
[2024-06-04] MEDS ORDERED: TEMAZEPAM 15 MG CAP PO PRN (04:05)
[2024-06-04 04:44] VITALS: BP 134/73
[2024-06-04 06:20] VITALS: BP 100/77
[2024-06-04] MEDS ORDERED: Regadenoson 0.4 MG/5 ML SYR IV ONE (06:48)
[2024-06-04] MEDS ORDERED: Technetium Tc 99M Tetrofosmi 0.23 MG KIT IJ SCH (08:50)
[2024-06-04] MEDS ORDERED: ATORVASTATIN CALCIUM 80 MG TAB PO SCH (10:00)
[2024-06-04] MEDS ORDERED: ASPIRIN ENTERIC COATED 81 MG TAB PO SCH (10:00)
[2024-06-04] MEDS ORDERED: Enoxaparin Sodium 40 MG/0.4 ML SYR SC SCH (10:00)
[2024-06-04] MEDS ORDERED: Metoprolol Tartrate 25 MG TAB PO SCH (10:00)
== END 2024-06-04 13:15 | disposition home or self-care (01) ==
LOC: ED 21:51 → EDHOLD 06-04 02:30
PROVIDERS: Emergency Medicine; ADMIT Internal Medicine; ATTEND Internal Medicine
DX: I20.89 Other forms of angina pectoris (principal); R42 Dizziness and giddiness; E86.0 Dehydration; I44.4 Left anterior fascicular block; I45.10 Unspecified right bundle-branch block; Z79.899 Other long term (current) drug therapy